=== PATIENT | male | born 1965 | race Caucasian/White ===

== ENCOUNTER 2023-04-30 16:26 | Observation (INO) | payer BC, OTHER ==
[~2023-04-30] VITALS: Ht 167.6 cm; Wt 111.4 kg
[2023-04-30] VITALS (11 sets, daily range): BP systolic 129–165; BP diastolic 67–90; TEMP 97.1–98.7; O2SAT 95–100
[2023-04-30] MEDS ORDERED: ISOVUE-370 76% 100ML VIAL As Ordered ONE (17:01)
[2023-04-30 17:09] LABS: BASO % 0.3 % (0.0-1.0); EOS # 0.2 10^3/uL (0.0-0.5); EOS % 2.1 % (0.0-3.0); HEMATOCRIT 47.9 % (42.0-52.0); LYMPH # 2.5 10^3/uL (1.5-5.0); LYMPH % 35.4 % (24.0-44.0); MEAN CORPUSCULAR HEMOGLOBIN 30.8 pg (27.0-33.0); MEAN CORPUSCULAR HGB CONC 33.4 g/dl (32.0-36.5); MEAN CORPUSCULAR VOLUME 92.1 fl (80.0-96.0); MONO # 0.4 10^3/uL (0.0-0.8); MONO % 5.3 % (2.0-8.0); NEUTROPHILS # 4.1 10^3/uL (1.5-8.5); NEUTROPHILS % 56.8 % (36.0-66.0); PLATELET COUNT, AUTOMATED 215 10^3/uL (150-450); WHITE BLOOD COUNT 7.1 10^3/uL (4.0-10.0)
[2023-04-30] MEDS ORDERED: HYDR-3490 PO (17:11)
[2023-04-30] MEDS ORDERED: LISI30TA4 PO (17:11)
[2023-04-30] MEDS ORDERED: ROSU5TAB5 PO (17:11)
[2023-04-30 17:20] LABS: INR 1.15; PROTHROMBIN TIME 14.3 SECONDS (12.5-14.5)
[2023-04-30 17:21] LABS: PARTIAL THROMBOPLASTIN TIME 26.4 SECONDS (24.8-34.2)
[2023-04-30 17:38] LABS: ALBUMIN 4.2 G/DL (3.2-5.2); ALKALINE PHOSPHATASE 62 U/L (46-116); ALT/SGPT 31 U/L (7.0-40); AST/SGOT 27 U/L (<34); BILIRUBIN,DIRECT 0.3 MG/DL (<0.4); BILIRUBIN,TOTAL 0.9 MG/DL (0.3-1.2); TOTAL PROTEIN 7.5 G/DL (5.7-8.2)
[2023-04-30 18:17] LABS: RSV AMPLIFICATION NEGATIVE (NEGATIVE)
[2023-04-30] MEDS: ASPIRIN 325 MG TAB PO ONE (19:19)
[2023-04-30] MEDS ORDERED: IBUP80TA PO (20:08)
[2023-04-30] MEDS ORDERED: ACET-897 PO (20:08)
[2023-04-30] MEDS ORDERED: MED REC COMMENT (20:09)
[2023-04-30] MEDS ORDERED: HOME MED LIST COMPLETE! XX SCH (20:10)
[2023-04-30 20:34] LABS: CK-MB VALUE MASS < 1.0 NG/ML (<3.6)
[2023-04-30 20:36] LABS: CHOLESTEROL LEVEL 146 MG/DL (<200); CHOLESTEROL RISK RATIO 3.73 (<5); HDL CHOLESTEROL 39.1 MG/DL (>40); LDL CHOLESTEROL 77.7 MG/DL (<100); NON-HDL-C 106.9 MG/DL; TRIGLYCERIDES LEVEL 146 MG/DL (<150)
[2023-04-30 20:37] LABS: CPK CREATINE PHOSPHOKINASE 146 U/L (46-171); MB/CK RELATIVE INDEX 0.68 (< OR =4)
[2023-04-30] MEDS: POTASSIUM CHLORIDE 10MEQ SR TABLET PO ONE (22:31)
[2023-05-01] VITALS (28 sets, daily range): BP systolic 108–139; BP diastolic 67–82; TEMP 96.7–99.1; O2SAT 89–98
[2023-05-01] MEDS ORDERED: ACETAMINOPHEN TAB 650MG DOSE (2X325MG) PO PRN (01:00)
[2023-05-01 05:18] LABS: HEMOGLOBIN 14.9 g/dl (13.5-17.5); MEAN CORPUSCULAR HEMOGLOBIN 30.7 pg (27.0-33.0); MEAN CORPUSCULAR HGB CONC 33.9 g/dl (32.0-36.5); MEAN CORPUSCULAR VOLUME 90.7 fl (80.0-96.0); PLATELET COUNT, AUTOMATED 203 10^3/uL (150-450); RED BLOOD COUNT 4.85 10^6/uL (4.30-6.10); WHITE BLOOD COUNT 7.9 10^3/uL (4.0-10.0)
[2023-05-01 05:54] LABS: BLOOD UREA NITROGEN 18 MG/DL (9-23); CALCIUM LEVEL 8.7 MG/DL (8.5-10.1); CARBON DIOXIDE LEVEL 27 MMOL/L (20-31); CHLORIDE LEVEL 105 MMOL/L (98-107); CREATININE FOR GFR 0.77 MG/DL (0.70-1.30); GLOMERULAR FILTRATION RATE > 60.0 (>56); GLUCOSE, FASTING 91 MG/DL (60-100); POTASSIUM SERUM 3.8 MMOL/L (3.5-5.1); SODIUM LEVEL 138 MMOL/L (136-145)
[2023-05-01] MEDS: ROSUVASTATIN 10 MG TAB (CRESTOR) PO SCH (08:56)
[2023-05-01] MEDS: ASPIRIN 81MG CHEW TABLET PO SCH (08:56)
[2023-05-01] MEDS: ENOXAPARIN 40MG/0.4ML SYRINGE (J1650 PER 10MG) SC SCH (08:57)
[2023-05-01] MEDS ORDERED: ATORVASTATIN 20 MG TAB PO SCH (09:00)
[2023-05-01 09:08] LABS: HEMOGLOBIN A1c 5.8 % (4.0-6.0)
[2023-05-01] MEDS ORDERED: ASPI81CH8 PO (11:30)
[2023-05-01] MEDS ORDERED: CRES10TA PO (11:30)
[2023-05-01] MEDS ORDERED: CLOP75TA2 PO (11:30)
[2023-05-01] MEDS: CLOPIDOGREL 75 MG TAB PO SCH (11:35)
[2023-05-01 12:35] LABS: C REACTIVE PROTEIN QUANTITATIV < 0.40 MG/DL (<1.0)
[2023-05-01 12:36] LABS: RHEUMATOID FACTOR QUANT < 3.5 IU/ML (<14)
[2023-05-02] VITALS (13 sets, daily range): BP systolic 118–136; BP diastolic 74–87; TEMP 96.2–97.5; O2SAT 91–100
[2023-05-02 06:26] LABS: BASO % 0.6 % (0.0-1.0); EOS # 0.3 10^3/uL (0.0-0.5); EOS % 3.9 % (0.0-3.0); HEMATOCRIT 43.8 % (42.0-52.0); HEMOGLOBIN 14.7 g/dl (13.5-17.5); LYMPH # 2.3 10^3/uL (1.5-5.0); LYMPH % 33.2 % (24.0-44.0); MEAN CORPUSCULAR HEMOGLOBIN 30.9 pg (27.0-33.0); MEAN CORPUSCULAR HGB CONC 33.6 g/dl (32.0-36.5); MONO # 0.5 10^3/uL (0.0-0.8); MONO % 7.8 % (2.0-8.0); NEUTROPHILS # 3.8 10^3/uL (1.5-8.5); NEUTROPHILS % 54.2 % (36.0-66.0); PLATELET COUNT, AUTOMATED 179 10^3/uL (150-450); RED BLOOD COUNT 4.76 10^6/uL (4.30-6.10); WHITE BLOOD COUNT 6.9 10^3/uL (4.0-10.0)
[2023-05-02 06:51] LABS: BLOOD UREA NITROGEN 18 MG/DL (9-23); CALCIUM LEVEL 8.6 MG/DL (8.5-10.1); CARBON DIOXIDE LEVEL 29 MMOL/L (20-31); CHLORIDE LEVEL 105 MMOL/L (98-107); CREATININE FOR GFR 0.87 MG/DL (0.70-1.30); GLOMERULAR FILTRATION RATE > 60.0 (>56); GLUCOSE, FASTING 90 MG/DL (60-100); POTASSIUM SERUM 3.9 MMOL/L (3.5-5.1); SODIUM LEVEL 139 MMOL/L (136-145)
[2023-05-02 09:39] LABS: DRVV SCREEN 43.7 SECONDS
[2023-05-02 09:43] LABS: PTT LUPUS TYPE ANTICOAG SCREEN 1.1 (0-1.20)
[2023-05-02] MEDS ORDERED: ROSU40TA4 PO (11:24)
[2023-05-10 13:07] LABS: ANCA-ATYPICAL <1:20 titer (Neg:<1:20); ANTI THROMBIN 3 ANTIGEN IMMUNO 100 % (72-124); ANTI THROMBIN 3 FUNCT ACTIVITY 98 % (75-135); ANTINUCLEAR ANTIBODIES DIRECT Negative (Negative); CARDIOLIPIN IGA ANTIBODY <9 APL U/mL (0-11); CARDIOLIPIN IGG ANTIBODY <9 GPL U/mL (0-14); CARDIOLIPIN IGM ANTIBODY <9 MPL U/mL (0-12); CYTOPLASMIC NEUTROP AB ANCA-C <1:20 titer (Neg:<1:20); F8 ACTIVITY FOR F8 PANEL 113 % (56-140); F8 ACTIVITY vWB FOR F8 PANEL 134 % (50-200); F8 ANTIGEN FOR F8 PANEL 146 % (50-200); HOMOCYST(E)INE SERUM 7.4 umol/L (0.0-14.5); PERINUCLEAR AB ANCA-P <1:20 titer (Neg:<1:20); PROTEIN C ANTIGEN 99 % (60-150); PROTEIN S ANTIGEN FREE 136 % (61-136); PROTEIN S ANTIGEN TOTAL 100 % (60-150); SJOGREN'S ANTI SS-A <0.2 AI (0.0-0.9); SJOGREN'S ANTI SS-B <0.2 AI (0.0-0.9)
== END 2023-05-02 14:19 | disposition home or self-care (01) ==
LOC: M ED 16:26 → INTOOBSV 19:38 → M ED INP 19:38 → M PCU 21:32
PROVIDERS: ADMIT Family Medicine; ATTEND Family Medicine
DX: G45.9 Transient cerebral ischemic attack, unspecified (principal); F80.1 Expressive language disorder; R53.1 Weakness; E87.6 Hypokalemia; I10 Essential (primary) hypertension; E78.5 Hyperlipidemia, unspecified; R73.03 Prediabetes; Z86.16 Personal history of COVID-19; M54.50 Low back pain, unspecified; Z79.82 Long term (current) use of aspirin; Z79.899 Other long term (current) drug therapy
CPT/HCPCS: 36415; 70450; 70496; 70498; 70551; 71045; 80047; 80048; 80061; 80076; 81240; 82140; 82375; 82550; 82553; 83036; 83090; 84484; 85025; 85027; 85240; 85245; 85246; 85300; 85301; 85302; 85305; 85306; 85610; 85652; 85730; 86037; 86038; 86140; 86147; 86431; 86850; 86900; 86901; 87631; 93005; 93041; 93306; 94760; 96372; 97161; 99285; J1650; Q9967

== ENCOUNTER → 2023-05-02 | Outpatient (CLI) | payer BC ==
[~2023-05-02] MED LIST: ACET-897 PO; ASPI81CH8 PO; CLOP75TA2 PO; CRES10TA PO; HYDR-3490 PO; IBUP80TA PO; LISI30TA4 PO; MED REC COMMENT; ROSU40TA4 PO; ROSU5TAB5 PO
== END ==
LOC: M EKG 14:34
PROVIDERS: ATTEND Internal Medicine
DX: G45.9 Transient cerebral ischemic attack, unspecified (principal)